=== PATIENT | female | born 1965 | race Caucasian/White ===

== ENCOUNTER → 2017-07-23 | Outpatient (CLI) | payer OTHER ==
[~2017-07-23] MED LIST: CEPH500C3 PO; DICL1GEL7 TOPICAL; IBUP600T26 PO
--- NOTE | 2017-07-23 10:14 | RADRPT ---
EXAM DATE/TIME: 07/23/2017 09:49 [place] COMPARISON: No previous studies available for comparison. INDICATIONS : Left ankle pain. MEDICAL HISTORY : Smoker. SURGICAL HISTORY : 1995 tibial mervat placement. ENCOUNTER: Initial ACUITY: 2 weeks PAIN SCORE: 6/10 LOCATION: Left achilles area. FINDINGS: 3 views of the left ankle demonstrate intramedullary mervat in the tibia with distal intercalated screw. There is some heterotopic bone at the distal fibular shaft osteotomy site. The ankle mortise is intact. No evidence of fracture about the ankle. There is a well-corticated os sific density adjacent to the tip of the medial malleolus which measures 4 x 7 mm and probably repres ents an old avulsion fragment. No significant soft tissue swelling about the medial lateral aspect o f the ankle. Calcification in the distal Achilles tendon near the insertion site. CONCLUSION: 1. No evidence of recent bony injury. 2. Well-corticated ossific fragment inferior to the medial malleolus suggests old avulsion injury. Daniel Sood MD on July 23, 2017 at 10:11 Board Certified Radiologist. This report was verified electronically.
== END ==
LOC: HRAD 09:32
PROVIDERS: ATTEND Family Medicine
DX: M76.62 Achilles tendinitis, left leg (principal)
CPT/HCPCS: 73610